=== PATIENT | male | born 1990 | race Caucasian/White ===

== ENCOUNTER 2023-05-19 17:52 | Emergency (ER) | payer MEDICAID, SELFPAY ==
[2023-05-19 17:57] VITALS: BP 162/89; PULSE 78; RESP 18; TEMP 37.2; O2SAT 96
--- NOTE | 2023-05-19 18:00 | DI.CT_ITS ---
Exam(s) CT CHEST/ABD/PEL W EXAM: CT CHEST/ABD/PEL W CLINICAL HISTORY: trauma, fall down 15 stairs, left thorac and back. TECHNIQUE: Imaging Protocol: Axial computed tomography images with coronal and sagittal reformatted images were created and reviewed CONTRAST MATERIAL: Intravenous: Omnipaque 350 Contrast volume:100 ml Oral: None COMPARISON: No exams were available for comparison FINDINGS: CHEST: OSSEOUS: LUNGS: There is sub pleural infiltrate in both lower lobes, not associated with pleural effusions and there is no pneumothorax. No significant focal findings in the trachea and mainstem bronchi.. MEDIASTINUM: No evidence of sternal fracture nor mediastinal hematoma. Visualized thyroid unremarkab le.No hilar nor mediastinal adenopathy. CARDIAC: Heart size is normal. There is no pericardial effusion.Thoracic aorta is intact. Normal ca liber. No dissection. OSSEOUS: There is a subtle nondisplaced fracture of the left 11th rib. Also very subtle nondisplaced fractures of the left 9th and 10th ribs. No other fractures identified.. ABDOMEN: There is no ascites. No evidence of mesenteric nor bowel wall hematoma. LIVER: No laceration nor significant focal findings. No dilated intrahepatic ducts. GALLBLADDER/BILIARY: No obvious acute gallbladder pathology. CBD is not dilated. PANCREAS: No evidence of pancreatic mass nor dilatation of the pancreatic duct. SPLEEN: Normal size. No laceration. Splenic and portal veins are patent. ADRENALS: No lesions nor hemorrhage. KIDNEYS: No evidence of renal lacerations nor subcapsular hematomas. Both kidneys exhibit normal siz e and no focal findings. No calculi. No hydronephrosis.. No perinephric stranding. Ureters are no t dilated. ABDOMINAL AORTA: Intact. Unremarkable. Aortoiliac segments also intact-unremarkable. LYMPH NODES: There is no retroperitoneal nor paraaortic adenopathy. ABDOMINAL WALL: No evidence of significant subcutaneous bruising nor fluid collections. No significa nt anterior abdominal hernia. There is a fat only containing left inguinal hernia. GI: No evidence of bowel wall hematoma nor ileus. The colon distal to the splenic flexure is collaps ed and exhibits fat halo sign. This may be within normal limits but is sometimes seen in chronic inf lammatory bowel disease. Similar findings not seen in the right-side of the colon. PELVIS: LYMPH NODES: There is no intrapelvic nor inguinal adenopathy. GI: No evidence of appendicitis.No significant sigmoid diverticular disease. URINARY BLADDER: Bladder is filled with contrast. No intraluminal filling defects. No radiopaque ca lculi. REPRODUCTIVE: Prostate normal size. Seminal vesicles unremarkable. No evidence of hip nor pelvic fr acture. Sacroiliac joints unremarkable. OSSEOUS: No pelvic fractures. IMPRESSION: 1. There are very subtle nondisplaced fractures of the left 9th, 10th, and 11th ribs. There is some infiltrate in both lower lobes. No pleural effusions. No pneumothorax. 2. No acute trauma findings in the abdomen and pelvis. 3. Fat halo sign incidentally noted in the distal half of the colon. This may be related to the fact that the colon is completely evacuated at and distal to the splenic flexure. However, fat halo sign is often seen in chronic inflammatory bowel disease such as chronic ulcerative colitis or Crohn's. RADIATION DOSE DELIVERED: Total DLP DATA REPOSITORY: All CT scans at this facility are submitted to the National Radiology Data Registry (NRDR) Dose Index Registry (DIR) with the [employer] (A[employer]). RADIATION OPTIMIZATION: All CT scans at this facility use at least one of these dose optimization te chniques: automated exposure control; mA and/or kV adjustment per patient size (includes targeted exa ms where dose is matched to clinical indication); or iterative reconstruction.
--- NOTE | 2023-05-19 18:07 | DI.CT_ITS ---
Exam(s) CT THORACIC LUMBAR SPINE REC EXAM: CT THORACIC LUMBAR SPINE REC CLINICAL HISTORY: fall down 15 stairs, thoracic pain TECHNIQUE: COMPARISON: CT CT CHEST/ABD/PEL W from 05/19/2023 FINDINGS: THORACIC SPINAL COLUMN: There are superior endplate Schmorl's node invagination at the T7 and T8 leve ls. No other osseous findings in the thoracic spine. No listhesis. No disc space narrowing. Facet s unremarkable. No acute compromise of the canal. LUMBOSACRAL SPINAL COLUMN: No evidence of fracture, listhesis, nor pars defects. No disc space narro wing. Facet joints appear unremarkable. Transverse processes are unremarkable. No sacral fracture identified and sacroiliac joints appear unremarkable. No acute compromise of the spinal canal. IMPRESSION: No significant acute findings in the thoracic and lumbosacral spinal columns. Schmorl's node invagination are noted at superior endplate levels of T7 and T8.
--- NOTE | 2023-05-19 18:11 | ED.GENADUL_ITS ---
Discharge Plan Disposition Patient Disposition: Home Condition: Improving Discharge Details Clinical Impression: Multiple rib fractures ED Provider: Nicolás Horn Home Meds and New Rx's Prescriptions: New cyclobenzaprine 5 mg tablet 5 mg PO QHS PRN7 Days Qty: 7 0RF lidocaine [Lidoderm] 5 % adhesive patch,medicated 1 patch topical DAILY Qty: 15 0RF Rx Instructions: leave on most painful area for up to 12 hrs Discharge Instructions Instructions: Rib Fracture (ED) Additional Instructions: Please use incentive spirometer as instructed. Please return to emergency department for any worsening symptoms. HPI General Date/Time Provider Initiated Documentation: 05/19/23 18:00 . HPI Narrative: 32-year-old male presents after falling down approximately 15 stairs last night leaned over a banister fell directly onto his back and left side also hit his head without loss of consciousness. Mid back pain and left thoracic discomfort. No nausea vomiting abdominal pain pelvic pain leg or arm injury. Related Data Home Medications Medication Instructions Recorded Confirmed cyclobenzaprine 5 mg tablet 5 mg PO QHS PRN 7 days #7 tabs 05/19/23 lidocaine 5 % topical patch 1 patch topical DAILY #15 ea 05/19/23 (Lidoderm) Previous Rx's Medication Instructions Recorded cyclobenzaprine 5 mg tablet 5 mg PO QHS PRN 7 days #7 tabs 05/19/23 lidocaine 5 % topical patch 1 patch topical DAILY #15 ea 05/19/23 (Lidoderm) Allergies Allergy/AdvReac Type Severity Reaction Status Date / Time No Known Allergies Allergy Unverified 05/19/23 18:00 General Stated Complaint: Trauma GABY: 3 Review of Systems Narrative: Review of Systems Constitutional: negative Eyes: negative ENT: negative Cardiovascular: negative Respiratory: negative Gastrointestinal: negative : negative Musculoskeletal: Back pain Skin: negative Neurologic: negative Psych: negative Exam Narrative Exam Narrative: Physical Examination General: alert, awake, cooperative, appears uncomfortable HEENT: normocephalic, atraumatic; PERRL, EOM intact, conjunctiva normal; no nasal discharge; moist mucous membranes, oral and pharyngeal mucosa normal, tolerating secretions Neck: supple, trachea midline; full ROM Chest: normal to inspection Respiratory: normal respiratory effort, speaking in full sentences, clear to auscultation, no wheezing, rales or rhonchi Cardiac: regular rate, regular rhythm, S1S2 intact, no murmurs rubs or gallops GI: abdomen soft, non-tender, non-distended; no palpable mass or hepatosplenomegaly Back: Midline thoracic tenderness without step-off crepitus or deformity, midline lumbar discomfort without step-off crepitus or deformity Skin: no lesions, rashes or trauma appreciated Neuro: AAOx3, normal speech, moving all extremities Extremities: Moving all extremities, no signs of trauma Psych: Appropriate mood and affect Course Vital Signs Vital signs: Vital Signs Temperature 37.2 C 05/19/23 17:57 Pulse 78 05/19/23 17:57 Respiratory Rate 18 05/19/23 17:57 Blood Pressure 162/89 H 05/19/23 17:57 Pulse Oximetry 96 05/19/23 17:57 Temperature 37.2 C 05/19/23 17:57 Temperature Source Temporal Artery Scan 05/19/23 17:57 Pulse 78 05/19/23 17:57 Respiratory Rate 18 05/19/23 17:57 Respiratory Effort Normal 05/19/23 18:05 Respiratory Depth Normal 05/19/23 18:05 Respiratory Pattern Normal 05/19/23 18:05 Blood Pressure 162/89 H 05/19/23 17:57 Blood Pressure Position Sitting 05/19/23 17:57 Pulse Oximetry 96 05/19/23 17:57 Oxygen Delivery Method Room Air 05/19/23 17:57 Oxygen Flow Rate 0 05/19/23 17:57 Medical Decision Making 32-year-old male presents after falling down 15 stairs last night leaned over a banister and fell, landing on thoracic back, pain to posterior left thoracic chest wall, midline thoracic discomfort on examination midline lumbar discomfort on examination, patient did not lose consciousness is neurologically intact moving all extremities 5-5 strength upper and lower extremities, sensation intact, ambulatory without assistance no ataxia, no saddle anesthesia, lungs clear bilaterally hemodynamically stable noted to be moderately hypertensive likely related to discomfort. Concern for posterior rib fractures versus spinous process fracture versus other spinal column injury low suspicion for intracranial hemorrhage or skull fracture low suspicion for intra-abdominal process however given mechanism of injury will obtain CT chest abdomen pelvis CT T-spine CT L-spine, analgesia anti-inflammatory. Basic labs fluids close reassessment 20: 00 evidence of nondisplaced ninth 10th and 11th rib fracture on the left, patient resting more comfortably, no respiratory distress normoxic. Will send home with incentive spirometry and pain medication. Home care instructions and return precaution given Quality:SDOH Health Related Social Needs: No Data to Display PFSH All Active Problems (Updated 05/19/23 @ 20:01 by Nicolás Horn MD) Multiple rib fractures (Acute) Social History Smoking/Tobacco Use Status: Current every day Smoking risk assessment performed?: Yes Alcohol Intake: current Alcohol Intake frequency: 3 or more drinks per day Alcohol type: beer Drug use: Daily Substance use type: marijuana
[2023-05-19] MEDS: ACETAMINOPHEN 1,000 MG/100 ML BTL 400 MG IVPB (18:26)
[2023-05-19] MEDS: MORPHine 4 MG/ML SYR 2 MG IVP (18:27)
[2023-05-19] MEDS: Dexamethasone 10 MG/ML VIAL IVP (18:27)
[2023-05-19 18:28] LABS: Abs Immature Grans 0.05 10^3/uL (0.0-0.06); Absolute Basophil Count 0.08 10^3/uL (0.0-0.2); Absolute Eosinophil Count 0.05 10^3/uL (0.0-0.7); Absolute Lymphocyte Count 2.24 10^3/uL (1.2-3.4); Absolute Monocyte Count 0.83 10^3/uL (0.1-0.8); Basophils % 0.6; Eosinophils % 0.4; Immature Grans % 0.4; MCH 31.6 pg (27.0-33.0); MCHC 33.6 % (32.0-36.0); MCV 94 fL (80-95); MPV 9.5 fL (8.0-11.0); Monocytes % 6.3; Neutrophils % 75.3; Platelet Count 293 10^3/uL (130-400); RBC 6.29 10^6/uL (4.36-5.78); RDW 13.6 % (11.8-14.1); RDW-SD 46.8 fL; WBC 13.19 10^3/uL (4.4-10.8)
[2023-05-19] MEDS: Lidocaine 5% Patch 1 PATCH TP (18:28)
[2023-05-19] MEDS: Normal Saline 1,000 ML 1000 ML IV (18:28)
[2023-05-19 18:32] LABS: Absolute Neutrophil Count 9.93 10^3/uL (1.2-6.7)
[2023-05-19 18:40] LABS: HCT 59.2 % (40.0-50.0); HGB 19.9 g/dL (13.5-17.5)
[2023-05-19 18:41] LABS: ALT 45 U/L (16-63); AST 36 U/L (15-37); Albumin 3.7 g/dL (3.4-5.0); Alkaline Phosphatase 133 U/L (46-116); Anion Gap 12.2 mmol/L (3-11); BUN 7 mg/dL (7-18); Bilirubin, Total 0.8 mg/dL (0.2-1.0); CO2 25.8 mmol/L (21.0-32.0); Calcium 9.2 mg/dL (8.5-10.1); Chloride 105 mmol/L (98-107); Estimated GFR 103.19 (mL/min/1.73m2); Glucose 116 mg/dL (74-106); Sodium 143 mmol/L (136-145); Total Protein 7.7 g/dL (6.4-8.2)
[2023-05-19 18:43] LABS: Diff Comment RBC Morph Reviewed; RBC Morphology Normal
[2023-05-19] MEDS: Normal Saline - Diluent 50 ML VIAL IJ (18:46)
[2023-05-19] MEDS: Omnipaque 350 MG/ML 100 ML BTL IJ (18:47)
[2023-05-19 19:33] VITALS: BP 155/91; PULSE 76; RESP 16; O2SAT 96
--- NOTE | 2023-05-19 19:39 | DI.VRAD_ITS ---
PROCEDURE INFORMATION: Exam: CT Chest With Contrast; Diagnostic Exam date and time: 05/19/2023 6:44 PM Age: 32 years old Clinical indication: Other: Trauma, fall down 15 stairs, left thorac and back TECHNIQUE: Imaging protocol: Diagnostic computed tomography of the chest with contrast. Contrast material: 350; Contrast volume: 100 ml; Contrast route: INTRAVENOUS (IV); COMPARISON: CT THORACIC LUMBAR SPINE REC 05/19/2023 6:44 PM FINDINGS: Lungs: Bilateral posterior lung atelectasis [id number] severity. No infiltrative type features. Pleural spaces: No pleural effusion. No pneumothorax. Heart: Normal heart size. No pericardial effusion. No coronary artery atherosclerotic calcium. Lymph nodes: Unremarkable. No enlarged lymph nodes. Vasculature: Thoracic aorta is normal in course and caliber. No acute change. Bones/joints: Superior endplate Schmorl's nodes at T7 and T8 with chronic appearance. Nondisplaced rib fractures of the posterior left 11th, 10th, and 9th ribs. Soft tissues: Unremarkable. IMPRESSION: 1. Posterior bilateral lung atelectasis. 2. No acute pleural change. 3. Nondisplaced fractures of the posterior 11th, 10th, and 9th ribs. Series 8: Images 587 for the 11th rib, 534 the 10th rib, and 500 for the 9th rib. PROCEDURE INFORMATION: Exam: CT Abdomen And Pelvis With Contrast Exam date and time: 05/19/2023 6:44 PM Age: 32 years old Clinical indication: Other: Trauma, fall down 15 stairs, left thorac and back TECHNIQUE: Imaging protocol: Computed tomography of the abdomen and pelvis with contrast. Contrast material: 350; Contrast volume: 100 ml; Contrast route: INTRAVENOUS (IV); COMPARISON: CT THORACIC LUMBAR SPINE REC 05/19/2023 6:44 PM FINDINGS: Liver: Liver is unremarkable in size and contour. Attenuation is unremarkable. Gallbladder and bile ducts: The gallbladder is normal in size and shape. No stones or inflammatory changes. Pancreas: The pancreas is normal in contour and attenuation. Spleen: The spleen is normal in size, contour and attenuation. Adrenal glands: Normal. No mass. Kidneys and ureters: The kidneys bilaterally are unremarkable. Normal attenutation. No hydronephrosis. No calculi. Stomach and bowel: Unremarkable. No obstruction. No mucosal thickening. Appendix: No evidence of appendicitis. Intraperitoneal space: No free fluid in the abdomen or pelvis. No free air. Vasculature: Unremarkable. No abdominal aortic aneurysm. Lymph nodes: Unremarkable. No enlarged lymph nodes. Urinary bladder: Urinary bladder is unremarkable in appearance. No wall thickening. No intravesicular calculi. No intravesicular gas. Reproductive: Unremarkable as visualized. Bones/joints: Pelvis and sacrum are unremarkable. Lumbar spine is unremarkable. No acute skeletal change. Soft tissues: Unremarkable. IMPRESSION: 1. No acute visceral disruption. 2. No free fluid. 3. Abdominal wall soft tissues are unremarkable. 4. No acute skeletal change of the lumbosacral or pelvic region. Dictated and Authenticated by: Blayne Arshad MD. Ordering:KAYE Monzon MD
--- NOTE | 2023-05-19 19:49 | DI.VRAD_ITS ---
PROCEDURE INFORMATION: Exam: CT Thoracic Spine Without Contrast Exam date and time: 05/19/2023 6:44 PM Age: 32 years old Clinical indication: Other: Trauma, fall down 15 stairs, left thorac and back TECHNIQUE: Imaging protocol: Computed tomography of the thoracic spine without contrast. Radiation optimization: All CT scans at this facility use at least one of these dose optimization techniques: automated exposure control; mA and/or kV adjustment per patient size (includes targeted exams where dose is matched to clinical indication); or iterative reconstruction. COMPARISON: CT CHEST/ABD/PEL W 05/19/2023 6:44 PM FINDINGS: Bones/joints: Vertebral bodies are normal in texture, density, and alignment. There are chronic superior endplate Schmorl's nodes with mild loss of height at T7 and T8. There are no acute vertebral body fractures. No facet offset or malalignment. Spinous processes are unremarkable. Transverse processes are intact. Soft tissues: Unremarkable. Vasculature: Thoracic aorta is unremarkable in appearance. Lungs: Posterior bilateral lung atelectatic consolidation. Pleural spaces: No gross pleural effusion evident. IMPRESSION: 1. No thoracic spine acute fracture or posttraumatic malalignment. 2. Old Schmorl's node superior endplates of T7 and T8 consistent with old minor compression fractures. PROCEDURE INFORMATION: Exam: CT Lumbar Spine Without Contrast Exam date and time: 05/19/2023 6:44 PM Age: 32 years old Clinical indication: Other: Trauma, fall down 15 stairs, left thorac and back TECHNIQUE: Imaging protocol: Computed tomography of the lumbar spine without contrast. COMPARISON: CT CHEST/ABD/PEL W 05/19/2023 6:44 PM FINDINGS: Bones/joints: Lumbar spine is unremarkable. Vertebral bodies normal in height, shape, alignment, and density. No fractures. Facet joints are unremarkable. Transverse processes and spinous processes are intact. Sacrum and sacroiliac joints are unremarkable. Soft tissues: Paravertebral soft tissues are within normal limits. IMPRESSION: No lumbar spine acute fracture or malalignment. No posttraumatic change. Dictated and Authenticated by: Blayne Arshad MD. Ordering:KAYE Monzon MD
[2023-05-19 20:01] VITALS: BP 148/93; PULSE 73
[2023-05-19] MEDS: Ketorolac 15 MG/ML VIAL IVP (20:16)
== END 2023-05-19 20:16 | disposition home or self-care (01) ==
LOC: ER 20:06
PROVIDERS: Emergency Provider Emergency Medicine
DX: S22.42XA Multiple fractures of ribs, left side, initial encounter for closed fracture (principal); W10.8XXA Fall (on) (from) other stairs and steps, initial encounter; Y93.01 Activity, walking, marching and hiking
CPT/HCPCS: 74177; 80053; 96361; 96374; 96375; 99285; 71260; 85025; 99284; J0131; J1100; J1885; J2270; J3490